=== PATIENT | female | born 1980 | race Caucasian/White ===

== ENCOUNTER 2021-04-24 07:49 | Outpatient (CLI) | payer BC, SELFPAY ==
--- NOTE | ~2021-04-24 | US_ITS ---
EXAMINATION: US right upper quadrant DATE: 04/24/2021 08:11 INDICATION: Right upper quadrant abdominal pain. TECHNIQUE: Multiple grayscale and Doppler ultrasound images of the abdomen were obtained. COMPARISON: None FINDINGS: The pancreas is obscured by bowel gas. The liver is normal without focal lesion. There is n ormal flow in main portal vein. The gallbladder is contracted and contains sludge. No gallstones or s onographic Stone sign. The common duct is normal and measures 6 mm. IMPRESSION: 1. Gallbladder sludge. No evidence of acute cholecystitis. Reviewed, dictated and finalized at location A.
== END 2021-04-24 07:50 | disposition home or self-care (01) ==
LOC: CHSIMG 07:51
PROVIDERS: PCP Family Medicine; Visit Provider Physician Assistant
DX: R10.11 Right upper quadrant pain (principal)
CPT/HCPCS: 76705

== ENCOUNTER 2022-07-25 08:49 | Outpatient (CLI) | payer BC, SELFPAY | END 2022-07-25 08:50 | disposition home or self-care (01) | LOC: CHSAUDIO 08:53 | PROVIDERS: PCP Physician Assistant; Visit Provider Otolaryngology | DX: H91.93 Unspecified hearing loss, bilateral (principal) | CPT/HCPCS: 92557; 92567 ==